=== PATIENT | male | born 1970 | race American Indian/Alaskan Native ===

== ENCOUNTER 2017-05-19 11:38 | Emergency (ER) | payer MEDICAID ==
[2017-05-19 12:02] VITALS: RESP 16; TEMP 97.7; BMI 25.1
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
[2017-05-19 12:53] LABS: URINE BILIRUBIN NEGATIVE (NEGATIVE); URINE BLOOD NEGATIVE (NEGATIVE); URINE GLUCOSE (UA) NEGATIVE (NEGATIVE); URINE LEUKOCYTE ESTERASE NEGATIVE Leu/uL (NEGATIVE); URINE NITRATE NEGATIVE (NEGATIVE); URINE PROTEIN NEGATIVE mg/dL (<30 mg/dL); URINE UROBILINOGEN 0.2 E.U./dL (<1 E.U./dL)
[2017-05-19 12:58] LABS: URINE COLOR YELLOW (YELLOW)
[2017-05-19 12:59] LABS: URINE APPEARANCE CLEAR (CLEAR)
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
[2017-05-19 14:37] VITALS: BP 132/80; PULSE 62; O2SAT 98
== END 2017-05-19 14:20 | disposition home or self-care (01) ==
LOC: ED 11:38
DX: R07.89 Other chest pain (principal); M79.1 Myalgia
CPT/HCPCS: 71250; 74176; 81003; 96372; 99285; J1885

== ENCOUNTER 2017-06-28 19:09 | Emergency (ER) | payer MEDICAID ==
[2017-06-28 19:10] VITALS: BMI 25.1
[2017-06-28 20:31] LABS: URINE APPEARANCE CLEAR (CLEAR); URINE BILIRUBIN NEGATIVE (NEGATIVE); URINE BLOOD NEGATIVE (NEGATIVE); URINE COLOR YELLOW (YELLOW); URINE GLUCOSE (UA) NEGATIVE (NEGATIVE); URINE KETONE NEGATIVE (NEGATIVE); URINE LEUKOCYTE ESTERASE NEGATIVE Leu/uL (NEGATIVE); URINE PROTEIN 30 mg/dL (<30 mg/dL); URINE UROBILINOGEN 0.2 E.U./dL (<1 E.U./dL)
[2017-06-28 20:34] LABS: BASO # 0.04 K/mm3 (0.0-2.0); BASO % 0.6 % (0.0-3.0); EOS # 0.1 (0.0-0.7); EOS % 1.3 % (1.5-5.0); GRAN # 3.9 (1.4-6.5); GRAN % 56.6 % (50.0-68.0); HEMATOCRIT 42.9 % (42.0-52.0); LYMPH # 2.4 (1.2-3.4); LYMPH % 35.5 % (22.0-35.0); MEAN CELL VOLUME 92.5 fl (80.0-105.0); MEAN CORPUSCULAR HEMOGLOBIN 31.5 pg (25.0-35.0); MEAN PLATELET VOLUME 10.3 fl (7.0-11.0); MONO # 0.4 (0.1-0.6); RED CELL DISTRIBUTION WIDTH 13.4 % (11.5-14.5); WHITE BLOOD COUNT 6.9 10^3/ul (4.5-11.0)
[2017-06-28 20:34] LABS: URINE RBC NEGATIVE /hpf (0-2); URINE WBC NEGATIVE /hpf (0-6)
[2017-06-28 20:46] LABS: ALB/GLOB RATIO 1.4 (1.1-1.8); ALKALINE PHOSPHATASE 80 U/L (38-126); ALT/SGPT 38 U/L (7-56); AST/SGOT 46 U/L (17-59); BILIRUBIN,TOTAL 0.7 mg/dL (0.2-1.3); BLOOD UREA NITROGEN 8 mg/dL (7-21); CALCIUM 9.1 mg/dL (8.4-10.5); CARBON DIOXIDE 25 mmol/L (21-33); CHLORIDE 107 mmol/L (98-107); GFR AFRICAN-AMERICAN > 60; GLUCOSE,RANDOM 91 mg/dL (70-110); POTASSIUM 3.7 mmol/L (3.6-5.0); SODIUM 142 mmol/L (132-148); TOTAL PROTEIN 7.5 g/dL (5.8-8.3)
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
[2017-06-29 00:08] VITALS: RESP 16
[2017-06-29 03:44] VITALS: BP 131/77; PULSE 69; TEMP 98.1; O2SAT 94
--- NOTE | 2017-06-29 07:46 | RAD ---
HISTORY: PES COMPARISON: Chest radiographs 12/14/2016. FINDINGS: LUNGS: No active pulmonary disease. PLEURA: No significant pleural effusion identified, no pneumothorax apparent. CARDIOVASCULAR: Normal. OSSEOUS STRUCTURES: No significant abnormalities. VISUALIZED UPPER ABDOMEN: Normal. OTHER FINDINGS: None. IMPRESSION: No acute cardiopulmonary is appreciated. No significant interval change 12/14/2016.
--- NOTE | 2017-06-29 11:11 | CARD ---
APPROVED REPORT EKG Measurement Heart [id number] <Conclusion> Normal sinus rhythm Minimal voltage criteria for LVH, may be normal variant
== END 2017-06-29 05:05 | disposition home or self-care (01) ==
LOC: ED 19:09
DX: R45.851 Suicidal ideations (principal); I10 Essential (primary) hypertension; F17.210 Nicotine dependence, cigarettes, uncomplicated; F19.10 Other psychoactive substance abuse, uncomplicated

== ENCOUNTER 2017-09-27 15:33 | Inpatient (IN) | payer MEDICAID, OTHER ==
[2017-09-27] MEDS ORDERED: Naloxone 0.4 mg/ml Inj (Adult) ONE (15:38)
[2017-09-27] MEDS ORDERED: Etomidate 20 mg/10ml Inj IV ONE (15:42)
[2017-09-27] MEDS ORDERED: Succinylcholine 200 mg/10 ml Inj IV ONE (15:42)
[2017-09-27] MEDS ORDERED: Sodium Chloride 0.9% 1,000 ML IV STA (15:55)
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
[2017-09-27] MEDS ORDERED: Etomidate 20 mg/10ml Inj IVP STA (16:00)
[2017-09-27] MEDS ORDERED: Succinylcholine 200 mg/10 ml Inj IV STA (16:00)
[2017-09-27] MEDS ORDERED: Naloxone 0.4 mg/ml Inj (Adult) IVP STA (16:00)
[2017-09-27 16:01] LABS: ALB/GLOB RATIO 1.5 (1.1-1.8); ALKALINE PHOSPHATASE 68 U/L (38-126); ALT/SGPT 32 U/L (7-56); AST/SGOT 37 U/L (17-59); BILIRUBIN,TOTAL 0.3 mg/dL (0.2-1.3); BLOOD UREA NITROGEN 18 mg/dL (7-21); CALCIUM 9.5 mg/dL (8.4-10.5); CARBON DIOXIDE 26 mmol/L (21-33); CHLORIDE 106 mmol/L (98-107); GFR AFRICAN-AMERICAN > 60; GLUCOSE,RANDOM 97 mg/dL (70-110); POTASSIUM 4.2 mmol/L (3.6-5.0); SODIUM 146 mmol/L (132-148); TOTAL PROTEIN 7.4 g/dL (5.8-8.3)
[2017-09-27 16:09] LABS: BASO # 0.02 K/mm3 (0.0-2.0); BASO % 0.2 % (0.0-3.0); EOS # 0.1 (0.0-0.7); EOS % 1.5 % (1.5-5.0); GRAN # 5.26 (1.4-6.5); GRAN % 59.7 % (50.0-68.0); HEMATOCRIT 46.4 % (42.0-52.0); LYMPH # 2.7 (1.2-3.4); LYMPH % 30.8 % (22.0-35.0); MEAN CELL VOLUME 96.9 fl (80.0-105.0); MEAN CORPUSCULAR HEMOGLOBIN 32.2 pg (25.0-35.0); MEAN CORPUSCULAR HGB CONC 33.2 g/dl (31.0-37.0); MEAN PLATELET VOLUME 10.4 fl (7.0-11.0); MONO # 0.7 (0.1-0.6); MONO % 7.8 % (1.0-6.0); RED CELL DISTRIBUTION WIDTH 13.3 % (11.5-14.5); WHITE BLOOD COUNT 8.8 10^3/ul (4.5-11.0)
[2017-09-27 16:12] LABS: TROPONIN I < 0.01 ng/mL
--- NOTE | 2017-09-27 16:34 | RAD ---
HISTORY: overdose COMPARISON: 06/28/2017 FINDINGS: LUNGS: No active pulmonary disease. PLEURA: No significant pleural effusion identified, no pneumothorax apparent. CARDIOVASCULAR: Probable mild cardiomegaly-similar OSSEOUS STRUCTURES: No significant abnormalities. VISUALIZED UPPER ABDOMEN: Normal. OTHER FINDINGS: Interval insertion endotracheal tube -tip 5 cm cephalad to nelson IMPRESSION: Interval insertion endotracheal tube. No acute cardiopulmonary pathology appreciated
[2017-09-27] MEDS: Propofol 10 mg/ml 1,000 MG/100 ML VIAL IV PRN ×3 (16:37→21:57)
[2017-09-27 16:41] LABS: URINE BILIRUBIN NEGATIVE (NEGATIVE); URINE BLOOD SMALL (NEGATIVE); URINE GLUCOSE (UA) NEGATIVE (NEGATIVE); URINE KETONE NEGATIVE (NEGATIVE); URINE LEUKOCYTE ESTERASE NEGATIVE Leu/uL (NEGATIVE); URINE PROTEIN NEGATIVE mg/dL (<30 mg/dL); URINE UROBILINOGEN 0.2 E.U./dL (<1 E.U./dL)
[2017-09-27 16:43] LABS: URINE APPEARANCE CLEAR (CLEAR); URINE COLOR YELLOW (YELLOW)
[2017-09-27 17:01] LABS: URINE BACTERIA FEW (NEG); URINE RBC 0 - 2 /hpf (0-2)
[2017-09-27 17:09] LABS: ARTERIAL BLOOD GAS HCO3 22.2 mmol/L (21-28); ARTERIAL BLOOD GAS PH 7.31 (7.35-7.45)
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
[2017-09-27 18:42] LABS: BLOOD UREA NITROGEN 16 mg/dL (7-21); CALCIUM 9.1 mg/dL (8.4-10.5); CARBON DIOXIDE 28 mmol/L (21-33); CHLORIDE 111 mmol/L (98-107); GFR AFRICAN-AMERICAN > 60; GLUCOSE,RANDOM 83 mg/dL (70-110); POTASSIUM 4.3 mmol/L (3.6-5.0); SODIUM 148 mmol/L (132-148)
--- NOTE | 2017-09-27 18:55 | CT ---
PROCEDURE: CT HEAD WITHOUT CONTRAST. HISTORY: unresponsive COMPARISON: Noncontrast head CT performed 03/13/16 TECHNIQUE: Axial computed tomography images were obtained through the head/brain without intravenous contrast. Radiation dose: Total exam DLP = 726.57 mGy-cm. This CT exam was performed using one or more of the following dose reduction techniques: Automated exposure control, adjustment of the mA and/or kV according to patient size, and/or use of iterative reconstruction technique. FINDINGS: HEMORRHAGE: No intracranial hemorrhage. BRAIN: No mass effect or edema. The turner-white matter differentiation appears intact.Please note that MRI with diffusion imaging is more sensitive in the detection of acute ischemic event. VENTRICLES: No hydrocephalus. CALVARIUM: Unremarkable. PARANASAL SINUSES: Unremarkable as visualized. No significant inflammatory changes. MASTOID AIR CELLS: Unremarkable as visualized. No inflammatory changes. OTHER FINDINGS: Partial opacification of the right external auditory canal, likely cerumen. IMPRESSION: No acute intracranial pathology identified. Partial opacification of the right external auditory canal, likely cerumen.
[2017-09-27] MEDS: Sodium Chloride 0.9% 1,000 ML IV SCH (19:32)
[2017-09-27 23:33] VITALS: BMI 23.0
--- NOTE | 2017-09-28 01:13 | CON ---
DATE: 09/27/2017 HISTORY OF PRESENT ILLNESS: This 46-year-old gentleman, who was brought into the emergency department by EMS, unresponsive. The patient remained unresponsive despite given Narcan. He was intubated in the emergency room for airway protection. No more HPI or PMH available as the patient is not responsive to touch stimuli and only responsive to painful stimuli. REVIEW OF SYSTEMS: Also not available. The patient is intubated at the time of presentation and examination by ICU Service. PAST MEDICAL HISTORY: Hypertension, asthma, COPD, seizure disorder. SOCIAL HISTORY: The patient is heavy smoker and smokes more than 10 cigarettes a day. Denies alcohol abuse. The patient abuse PCP. ALLERGIES: NKDA. HOME MEDICATIONS: None. REVIEW OF SYSTEMS: Not available. FAMILY HISTORY: Noncontributory. PHYSICAL EXAMINATION: The patient is intubated on PRVC 450/16/5/60%. On that setting, blood pressure 122/117, oxygen saturation 100%, heart rate 61, sinus. HEENT: Head and neck atraumatic. LUNGS: Clear to auscultation bilaterally. HEART: Regular rate and rhythm, S1 and S2 normal. ABDOMEN: Soft, nontender, nondistended. MUSCULOSKELETAL: No C/C/E. NEURO: The patient is nonresponsive to touch stimuli. SKIN: Moist. PSYCH: The patient is nonresponsive to touch stimuli. LABS: WBC 8.8, hemoglobin 15.4, platelet count 260. Sodium 146, potassium 4.2, chloride 106, carbon dioxide 26, BUN 18, creatinine 1.1, glucose 97, AST 37, ALT 32, total CPK 335. Troponin less than 0.01. Salicylates less than one. Tylenol less than 10. Alcohol 249. Urine is negative for leukocyte esterase, rbc's, wbc's, ketones, nitrites, proteins. ASSESSMENT AND PLAN: This is a 46-year-old gentleman, who presented with unresponsiveness and intubated for airway protection. He was found to have alcohol level of 249 which is enough to cause severe degree of clouding of consciousness. Chest x-ray did not reveal any acute pulmonary disease. U tox screen is pending. CAT scan of the head is pending. Neuro: The patient is probably heavily sedated with alcohol. We will continue with mechanical ventilation until his mental status improved and then proceed with weaning trial and potential extubation attempt. Pulmonary: We will continue with protective lung ventilation strategy. Head of bed elevated more than 35 degrees. Oral hygiene, deep venous thrombosis, gastrointestinal prophylaxis. Conservative fluid and oxygen management. Cardiovascular: The patient is hemodynamically relatively stable with exception of mild hypertension. Most likely, this is related to his some drug intoxication, but U tox is pending. GI: Abdominal exam is benign. We will continue with gastrointestinal prophylaxis. Renal: We will put Mueller in. We will monitor urine output. We will maintain mean arterial pressure above 65 and avoid hypotension and hypertension. We will avoid nephrotoxic medication. ID: The patient is afebrile, does not have leukocytosis. Endocrine: We will maintain blood glucose within 140 to 180 range. We will continue to target euvolemia, euglycemia, normothermia, and oxygen saturation more than 9o*%. We will continue with deep venous thrombosis and gastrointestinal prophylaxis. ccm time 40 min Rigoberto Martinez MD [facility]
[2017-09-28] MEDS: Propofol 10 mg/ml 1,000 MG/100 ML VIAL IV PRN ×2 (02:18→05:48)
[2017-09-28 05:36] LABS: BASO # 0.02 K/mm3 (0.0-2.0); BASO % 0.2 % (0.0-3.0); EOS # 0.1 (0.0-0.7); EOS % 0.7 % (1.5-5.0); GRAN # 9.65 (1.4-6.5); GRAN % 75.6 % (50.0-68.0); HEMATOCRIT 46.6 % (42.0-52.0); LYMPH # 2.3 (1.2-3.4); LYMPH % 18.3 % (22.0-35.0); MEAN CELL VOLUME 96.7 fl (80.0-105.0); MEAN CORPUSCULAR HEMOGLOBIN 31.7 pg (25.0-35.0); MEAN CORPUSCULAR HGB CONC 32.8 g/dl (31.0-37.0); MEAN PLATELET VOLUME 9.8 fl (7.0-11.0); MONO # 0.7 (0.1-0.6); MONO % 5.2 % (1.0-6.0); RED CELL DISTRIBUTION WIDTH 13.6 % (11.5-14.5); WHITE BLOOD COUNT 12.8 10^3/ul (4.5-11.0)
[2017-09-28] MEDS: Sodium Chloride 0.9% 1,000 ML IV SCH (05:48)
[2017-09-28 05:53] LABS: ARTERIAL BLOOD GAS HCO3 20.6 mmol/L (21-28); ARTERIAL BLOOD GAS PH 7.31 (7.35-7.45)
[2017-09-28 05:59] LABS: BLOOD UREA NITROGEN 13 mg/dL (7-21); CALCIUM 8.9 mg/dL (8.4-10.5); CARBON DIOXIDE 25 mmol/L (21-33); CHLORIDE 111 mmol/L (98-107); GFR AFRICAN-AMERICAN > 60; GLUCOSE,RANDOM 75 mg/dL (70-110); POTASSIUM 4.1 mmol/L (3.6-5.0); SODIUM 145 mmol/L (132-148)
[2017-09-28] MEDS ORDERED: Dexmedetomidine HCl 4mcg/ml 400 MCG/100 ML BOTTLE IV PRN (08:15)
[2017-09-28] MEDS ORDERED: Potassium Chloride 20 mEq/15 ml LIQ UD PO STA (11:23)
--- NOTE | 2017-09-28 12:00 | CP.PCM.PN ---
<Moncho Ruiz - Last Filed: 09/29/17 16:00> Subjective - Date & Time of Evaluation Date of Evaluation: 09/28/17 Time of Evaluation: 07:57 - Subjective Subjective: Patient seen and examined at bedside. Per nursing no acute events occurred overnight. The patient today was extubated early in the morning. The patient reports some right sided flank pain. The patient denies any chest pain, shortness of breath, chills, lightheadedness, dizziness, changes in vision, or any other complaints. Objective - Vital Signs/Intake and Output Vital Signs (last 24 hours): Temp Pulse Resp BP Pulse Ox 97.5 F L 75 12 182/86 H 98 09/28/17 06:00 09/28/17 10:46 09/28/17 08:09 09/28/17 10:46 09/28/17 08:23 Intake and Output: 09/28/17 09/28/17 06:59 18:59 Intake Total 1700 10 Output Total 3400 Balance -1700 10 - Medications Medications: Current Medications Amlodipine Besylate (Norvasc) 5 mg PO DAILY [facility] Last Admin: 09/28/17 10:46 Dose: 5 mg Heparin Sodium (Porcine) (Heparin) 5,000 units SC Q8H [facility] Last Admin: 09/28/17 03:00 Dose: 5,000 units Propofol (Diprivan) 1,000 mg in 100 mls @ 4.926 mls/hr IV .[id number] PRN; Protocol; 10 MCG/KG/MIN PRN Reason: TITRATE PER MD ORDER Last Titration: 09/28/17 08:17 Dose: 0 mcg/kg/min, 0 mls/hr Sodium Chloride (Sodium Chloride 0.9%) 1,000 mls @ 100 mls/hr IV .Q10H [facility] Last Admin: 09/28/17 05:48 Dose: 100 mls/hr Acetaminophen (Ofirmev) 1,000 mg in 100 mls @ 400 mls/hr IVPB Q6H PRN PRN Reason: Pain, moderate (4-7) Stop: 09/30/17 09:02 Last Admin: 09/28/17 09:14 Dose: 400 mls/hr Potassium Chloride (Potassium Chloride 20 Meq/100 Ml) 20 meq in 100 mls @ 50 mls/hr IVPB Q2H [facility] Stop: 09/28/17 13:44 Last Admin: 09/28/17 10:00 Dose: 50 mls/hr Ondansetron HCl (Zofran Inj) 2 mg IVP Q6 PRN PRN Reason: Nausea/Vomiting Pantoprazole Sodium (Protonix Inj) 40 mg IVP DAILY [facility] Last Admin: 09/28/17 09:41 Dose: 40 mg - Labs Labs: 09/28/17 05:15 09/28/17 05:15 - Head Exam Head Exam: ATRAUMATIC, NORMAL INSPECTION, NORMOCEPHALIC - Eye Exam Eye Exam: EOMI, Normal appearance, PERRL. absent: Periorbital tenderness Pupil Exam: NORMAL ACCOMODATION, PERRL. absent: Irregular, Unequal - ENT Exam ENT Exam: Mucous Membranes Moist, Normal Exam, Normal Oropharynx. absent: TM's Normal Bilaterally - Neck Exam Neck Exam: absent: Lymphadenopathy, Thyromegaly - Respiratory Exam Respiratory Exam: Clear to Ausculation Bilateral, NORMAL BREATHING PATTERN. absent: Chest Wall Tenderness, Prolonged Expiratory Phase, Respiratory Distress - Cardiovascular Exam Cardiovascular Exam: REGULAR RHYTHM, +S1, +S2 - GI/Abdominal Exam GI & Abdominal Exam: Soft, Normal Bowel Sounds. absent: Rigid, Hyperactive Bowel Sounds - Extremities Exam Extremities Exam: Full ROM. absent: Joint Swelling, Pedal Edema, Tenderness - Back Exam Back Exam: NORMAL INSPECTION. absent: CVA tenderness (R), paraspinal tenderness - Neurological Exam Neurological Exam: Alert, Awake, Normal Gait, Oriented x3 - Psychiatric Exam Psychiatric exam: Normal Affect, Normal Mood - Skin Skin Exam: Dry, Petechiae Assessment and Plan - Assessment and Plan (Free Text) Assessment: 46 year old male with a past medical history of depression, polysubstance abuse , seizures admitted for probably overdose. Plan: 1. Poly-substance overdose: Alcohol and Opiates -Urine drug screen was positive for opiates -Alcohol level was 249. -Given Narcan in transit to the hospital -Patient has a history of depression per Mother. Spoke with the mother regarding son's condition on the phone. Mother states he takes care of her since she has Stage 4 Pancreatic cancer and that contributes to his depression. Mother states that she is home ridden and will have the older son come and visit. I told the mother I would continue to update her on the status of her son. -Spoke with at bedside this morning. She confirmed the story and said the last time she saw him he was on his way to [place]. -Extubated. 2.History of Depression -Per mother patient has history of depression. States that son being treated at [facility] The patient was up until a week ago was on medication when he ran out. Since then per the mother, the son has been severely depressed. The mother states she saw her son this morning and he was fine. -Psych will be consulted. Follow up with recommendations 3. History of seizures -Per mother patient has history of seizures. Once extubated will try and obtain home medications. Will continue to monitor. 4. History of hypertension -Patient non-compliant per . -Last time taking medicine was over a year ago per the . -Will call Pharmacy and confirm home medications. Patient is normotensive at the time of the exam. Will continue to monitor. 5. Right sided flank pain -Abdomen, pelvis, chest ct ordered. Will follow up with results. GI/DVT ppx -Protonix and SCD's <Benedict Keith - Last Filed: 09/29/17 16:44> Objective - Vital Signs/Intake and Output Vital Signs (last 24 hours): Temp Pulse Resp BP Pulse Ox 98.6 F 66 20 140/86 97 09/29/17 07:30 09/29/17 14:20 09/29/17 07:30 09/29/17 14:20 09/29/17 07:30 Intake and Output: 09/29/17 09/29/17 06:59 18:59 Intake Total 960 540 Output Total 300 Balance 660 540 - Medications Medications: Current Medications Amlodipine Besylate (Norvasc) 5 mg PO DAILY [facility] Last Admin: 09/29/17 09:52 Dose: 5 mg Heparin Sodium (Porcine) (Heparin) 5,000 units SC Q8H [facility] Last Admin: 09/29/17 10:30 Dose: 5,000 units Ketorolac Tromethamine (Toradol) 15 mg IM Q6 PRN PRN Reason: Pain, moderate (4-7) Stop: 10/04/17 11:16 Levofloxacin (Levaquin) 500 mg PO DAILY [facility] Lisinopril (Zestril) 10 mg PO DAILY [facility] Last Admin: 09/29/17 14:20 Dose: 10 mg Ondansetron HCl (Zofran Inj) 2 mg IVP Q6 PRN PRN Reason: Nausea/Vomiting Last Admin: 09/29/17 14:15 Dose: 2 mg Pantoprazole Sodium (Protonix Ec Tab) 40 mg PO DAILY [facility] Phenytoin Sodium (Dilantin) 100 mg PO TID [facility] Last Admin: 09/29/17 13:57 Dose: 100 mg - Labs Labs: 09/29/17 06:30 09/29/17 06:30 Attending/Attestation - Attestation I have personally seen and examined this patient.: Yes I have fully participated in the care of the patient.: Yes I have reviewed all pertinent clinical information, including history, physical exam and plan: Yes Notes (Text): 09/29/17 16:41 Attending note; Patient seen and examined with resident in ICU. Patient is a 46-year-old male admitted after found unconscious on the street. status post extubation. Complaining of right-sided rib pain. Patient looks anxious. Patient's girlfriend by the bedside. History of alcohol abuse; complete alcohol cessation is strongly advised. Small hematoma on the right parietal area. CT head is negative for any acute bleed. CT chest abdomen and pelvis ordered. Transfer out of ICU.
--- NOTE | 2017-09-28 15:26 | CT ---
PROCEDURE: CT Chest, Abdomen and Pelvis without intravenous contrast HISTORY: r/o rib fracture, abdominal injury/ fall COMPARISON: 05/19/2017 TECHNIQUE: Radiation dose: Total exam DLP = 569 mGy-cm. This CT exam was performed using one or more of the following dose reduction techniques: Automated exposure control, adjustment of the mA and/or kV according to patient size, and/or use of iterative reconstruction technique. FINDINGS: CT CHEST WITHOUT CONTRAST: LUNGS: Minimal linear scarring or atelectasis at both lung bases. MEDIASTINUM: Unremarkable. Normal caliber aorta and pulmonary arterial trunk. Normal size heart. LYMPH NODES: Unremarkable. PLEURA: Unremarkable. No pneumothorax. No pleural fluid. BONES: Unremarkable. OTHER FINDINGS: None. CT ABDOMEN AND PELVIS: LIVER: Unremarkable. No gross lesion or ductal dilatation. GALLBLADDER AND BILE DUCTS: Unremarkable. PANCREAS: Unremarkable. No gross lesion or ductal dilatation. SPLEEN: Unremarkable. ADRENALS: Unremarkable. No mass. KIDNEYS AND URETERS: Left-sided renal cysts VASCULATURE: Unremarkable. No aortic aneurysm. BOWEL: Unremarkable. No obstruction. No gross mural thickening. APPENDIX: Normal appendix. PERITONEUM: Unremarkable. No free fluid. No free air. LYMPH NODES: Unremarkable. No enlarged lymph nodes. BLADDER: Unremarkable. REPRODUCTIVE: Unremarkable. BONES: No acute fracture. OTHER FINDINGS: None. IMPRESSION: No acute findings
[2017-09-28 16:26] VITALS: RESP 20
--- NOTE | 2017-09-28 19:10 | CARD ---
APPROVED REPORT EKG Measurement Heart [id number] <Conclusion> Normal sinus rhythm Moderate voltage criteria for LVH, may be normal variant Borderline ECG
[2017-09-29 07:07] LABS: BASO # 0.02 K/mm3 (0.0-2.0); BASO % 0.3 % (0.0-3.0); EOS # 0.2 (0.0-0.7); EOS % 1.9 % (1.5-5.0); GRAN # 4.92 (1.4-6.5); GRAN % 63.8 % (50.0-68.0); HEMATOCRIT 42.8 % (42.0-52.0); LYMPH # 1.9 (1.2-3.4); LYMPH % 24.1 % (22.0-35.0); MEAN CELL VOLUME 95.5 fl (80.0-105.0); MEAN CORPUSCULAR HEMOGLOBIN 31.5 pg (25.0-35.0); MEAN CORPUSCULAR HGB CONC 32.9 g/dl (31.0-37.0); MEAN PLATELET VOLUME 10.7 fl (7.0-11.0); MONO # 0.8 (0.1-0.6); MONO % 9.9 % (1.0-6.0); RED CELL DISTRIBUTION WIDTH 13.5 % (11.5-14.5); WHITE BLOOD COUNT 7.7 10^3/ul (4.5-11.0)
[2017-09-29 07:28] LABS: BLOOD UREA NITROGEN 13 mg/dL (7-21); CARBON DIOXIDE 26 mmol/L (21-33); CHLORIDE 106 mmol/L (98-107); GFR AFRICAN-AMERICAN > 60; GLUCOSE,RANDOM 97 mg/dL (70-110); POTASSIUM 3.9 mmol/L (3.6-5.0); SODIUM 138 mmol/L (132-148)
[2017-09-29 07:58] VITALS: TEMP 98.6; O2SAT 97
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
[2017-09-29] MEDS ORDERED: levoFLOXacin 500 mg in D5W 500 MG/100 ML BAG IVPB SCH (10:00)
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
[2017-09-29 14:24] VITALS: BP 140/86; PULSE 66
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
--- NOTE | 2017-09-29 17:00 | CP.PCM.DIS ---
Provider - Provider Date of Admission: 09/27/17 16:51 Attending physician: Benedict Keith MD Consults: Psychiatry: Dr. Flowers Neurology: Dr. Aranda Time Spent in preparation of Discharge (in minutes): 45 Hospital Course - Lab Results Lab Results: Micro Results 09/27/17 22:53 Naris MRSA Culture (Admit) - Final MRSA NOT DETECTED Most Recent Lab Values WBC 7.7 10^3/ul (4.5-11.0) D 09/29/17 06:30 RBC 4.48 10^6/uL (3.5-6.1) 09/29/17 06:30 Hgb 14.1 g/dL (14.0-18.0) 09/29/17 06:30 Hct 42.8 % (42.0-52.0) 09/29/17 06:30 MCV 95.5 fl (80.0-105.0) 09/29/17 06:30 MCH 31.5 pg (25.0-35.0) 09/29/17 06:30 MCHC 32.9 g/dl (31.0-37.0) 09/29/17 06:30 RDW 13.5 % (11.5-14.5) 09/29/17 06:30 Plt Count 237 10^3/uL (120.0-450.0) 09/29/17 06:30 MPV 10.7 fl (7.0-11.0) 09/29/17 06:30 Gran % 63.8 % (50.0-68.0) 09/29/17 06:30 Lymph % (Auto) 24.1 % (22.0-35.0) 09/29/17 06:30 Kidder % (Auto) 9.9 % (1.0-6.0) H 09/29/17 06:30 Eos % (Auto) 1.9 % (1.5-5.0) 09/29/17 06:30 Baso % (Auto) 0.3 % (0.0-3.0) 09/29/17 06:30 Gran # 4.92 (1.4-6.5) 09/29/17 06:30 Lymph # 1.9 (1.2-3.4) 09/29/17 06:30 Kidder # 0.8 (0.1-0.6) H 09/29/17 06:30 Eos # 0.2 (0.0-0.7) 09/29/17 06:30 Baso # 0.02 K/mm3 (0.0-2.0) 09/29/17 06:30 pCO2 41 mm/Hg (35-45) 09/28/17 05:30 pO2 118.0 mm/Hg (80-100) H 09/28/17 05:30 HCO3 20.6 mmol/L (21-28) L 09/28/17 05:30 ABG pH 7.31 (7.35-7.45) L 09/28/17 05:30 ABG Total CO2 21.9 mmol.L (22-28) L 09/28/17 05:30 ABG O2 Saturation 99.4 % (95-98) H 09/28/17 05:30 ABG Base Excess -5.4 mmol/L (-2.0-3.0) L 09/28/17 05:30 ABG Potassium 2.9 mmol/L (3.6-5.2) L 09/28/17 05:30 Sodium 146.0 mmol/L (132-148) 09/28/17 05:30 Chloride 120.0 mmol/L (98-107) H 09/28/17 05:30 Glucose 54 mg/dl (75-110) L 09/28/17 05:30 Lactate 1.0 mmol/L (0.7-2.1) 09/28/17 05:30 FiO2 60.0 % 09/28/17 05:30 Sodium 138 mmol/L (132-148) 09/29/17 06:30 Potassium 3.9 mmol/L (3.6-5.0) 09/29/17 06:30 Chloride 106 mmol/L (98-107) 09/29/17 06:30 Carbon Dioxide 26 mmol/L (21-33) 09/29/17 06:30 Anion Gap 10 (10-20) 09/29/17 06:30 BUN 13 mg/dL (7-21) 09/29/17 06:30 Creatinine 0.8 mg/dl (0.8-1.5) 09/29/17 06:30 Est GFR ( Amer) > 60 09/29/17 06:30 Est GFR (Non-Af Amer) > 60 09/29/17 06:30 Random Glucose 97 mg/dL (70-110) 09/29/17 06:30 Calcium 9.0 mg/dL (8.4-10.5) 09/29/17 06:30 Total Bilirubin 0.3 mg/dL (0.2-1.3) 09/27/17 15:35 AST 37 U/L (17-59) 09/27/17 15:35 ALT 32 U/L (7-56) 09/27/17 15:35 Alkaline Phosphatase 68 U/L (38-126) 09/27/17 15:35 Lactate Dehydrogenase 572 U/L (333-699) 09/27/17 15:35 Total Creatine Kinase 335 U/L (35-230) H 09/27/17 15:35 CK-MB (CK-2) 3.4 ng/mL (0.0-3.6) 09/27/17 15:35 CK-MB (CK-2) % Cancelled 09/27/17 15:35 Troponin I < 0.01 ng/mL 09/27/17 15:35 Total Protein 7.4 g/dL (5.8-8.3) 09/27/17 15:35 Albumin 4.4 g/dL (3.0-4.8) 09/27/17 15:35 Globulin 3.0 gm/dL 09/27/17 15:35 Albumin/Globulin Ratio 1.5 (1.1-1.8) 09/27/17 15:35 Arterial Blood Potassium 2.9 mmol/L (3.6-5.2) L 09/28/17 05:30 Urine Color Yellow (YELLOW) 09/27/17 16:39 Urine Appearance Clear (CLEAR) 09/27/17 16:39 Urine pH 6.0 (4.7-8.0) 09/27/17 16:39 Ur Specific [place] <= 1.005 (1.005-1.035) 09/27/17 16:39 Urine Protein Negative mg/dL (<30 mg/dL) 09/27/17 16:39 Urine Glucose (UA) Negative mg/dL (NEGATIVE) 09/27/17 16:39 Urine Ketones Negative mg/dL (NEGATIVE) 09/27/17 16:39 Urine Blood Small (NEGATIVE) H 09/27/17 16:39 Urine Nitrate Negative (NEGATIVE) 09/27/17 16:39 Urine Bilirubin Negative (NEGATIVE) 09/27/17 16:39 Urine Urobilinogen 0.2 E.U./dL (<1 E.U./dL) 09/27/17 16:39 Ur Leukocyte Esterase Negative [place]/uL (NEGATIVE) 09/27/17 16:39 Urine RBC 0 - 2 /hpf (0-2) 09/27/17 16:39 Urine WBC 1 - 3 /hpf (0-6) 09/27/17 16:39 Ur Epithelial Cells 1 - 3 /hpf (0-5) 09/27/17 16:39 Urine Bacteria Few (NEG) 09/27/17 16:39 Salicylates < 1 mg/dL (2.0-20.0) L 09/27/17 15:35 Urine Opiates Screen Positive (NEGATIVE) H 09/27/17 16:39 Urine Methadone Screen Negative (NEGATIVE) 09/27/17 16:39 Acetaminophen < 10.0 ug/ml (10.0-20.0) L 09/27/17 15:35 Ur Barbiturates Screen Negative (NEGATIVE) 09/27/17 16:39 Ur Phencyclidine Scrn Negative (NEGATIVE) 09/27/17 16:39 Ur Amphetamines Screen Negative (NEGATIVE) 09/27/17 16:39 U Benzodiazepines Scrn Negative (NEGATIVE) 09/27/17 16:39 U Oth Cocaine Metabols Negative (NEGATIVE) 09/27/17 16:39 U Cannabinoids Screen Negative (NEGATIVE) 09/27/17 16:39 Alcohol, Quantitative 249 mg/dL (0-10) H 09/27/17 15:35 - Hospital Course Hospital Course: 46 year old male with past medical history of seizures, hypertension, depression , poly-substance abuse, presented with an overdose of opioids and alcohol. He was given narcan on the way to the hospital. Patient may have had a questionable history of a seizure, as his stated that alcohol generally triggers his seizures, but the history is unclear. While here, it was revealed that the patient also has a history of depression, and that he has not been taking his hypertension nor his depression medications for a while. He states that he last took his dilantin a couple of weeks ago, but his states that he has not been taking any of his medications. Patient was initially intubated because he could not guard his airway, but he was extubated on day two of his admission. On day of discharge, an EEG was performed and was found to be normal. Patient was able to support his airway, was tolerating a diet, and was able to perform IADLs. He was deemed stable for discharge. Discharge Exam - Head Exam Head Exam: ATRAUMATIC, NORMAL INSPECTION, NORMOCEPHALIC - Eye Exam Eye Exam: EOMI, Normal appearance, PERRL Pupil Exam: NORMAL ACCOMODATION, PERRL - ENT Exam ENT Exam: Normal External Ear Exam, Normal Oropharynx, TM's Normal Bilaterally - Neck Exam Neck exam: Full Rom, Normal Inspection - Respiratory Exam Respiratory Exam: Clear to PA & Lateral, NORMAL BREATHING PATTERN, UNREMARKABLE - Cardiovascular Exam Cardiovascular Exam: REGULAR RHYTHM, +S1, +S2. absent: Systolic Murmur - GI/Abdominal Exam GI & Abdominal Exam: Normal Bowel Sounds - Rectal Exam Rectal Exam: NORMAL INSPECTION - Extremities Exam Extremities exam: full ROM, normal inspection - Back Exam Back exam: FULL ROM, NORMAL INSPECTION. absent: CVA tenderness (L), CVA tenderness (R) - Neurological Exam Neurological exam: Alert, CN II-XII Intact, Normal Gait, Oriented x3, Reflexes Normal - Psychiatric Exam Psychiatric exam: Normal Affect, Normal Mood - Skin Skin Exam: Dry, Intact, Normal Color, Warm Discharge Plan - Follow Up Plan Condition: CRITICAL Disposition: HOME/ ROUTINE Instructions: Pneumococcal Vaccine for Adults (GEN), Influenza (GEN), Abuse of Alcohol (GEN), Alcohol Withdrawal (DC) Additional Instructions: 1.Follow-up with [facility] next week. Call [phone] to confirm appointment. 2. Stop alcohol abuse. 3. Follow-up with AA meetings. 4. Stop smoking. Stop opiate abuse.
--- NOTE | 2017-09-29 18:17 | ENDO ---
PROCEDURE DATE: CONDITION OF THE RECORDING: Drowsy EEG. DIAGNOSIS: Seizure. MEDICATIONS: Reviewed by nurse's reconciliation sheet. INTERPRETATION: This is a 16-channel [employer] recording. The background activity of this tracing was composed of 6-7 cycles per second. There was a small amount of beta activity of 16-20 cycles per second seen in this recording. There was increased amount of theta activity 5-7 cycles per seconds seen in this tracing. Drowsiness was characterized by mixed beta and theta activities. Sleep was characterized by vertex transient waves, sleep spindles, and bilateral slowing. Photic stimulation showed no changes in the tracing. No paroxysmal activity is noted in this recording. CONCLUSION: This is an abnormal EEG due to presence of mild diffuse slowing throughout the recordings consistent with mild bilateral cerebral dysfunction. No evidence of any epileptiform activity. Please clinically correlate. Jose J Aranda MD
[2017-09-30] MEDS ORDERED: Pantoprazole 40 mg EC Tab PO SCH (10:00)
[2017-09-30] MEDS ORDERED: levoFLOXacin 500 MG TAB PO SCH (10:00)
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
== END 2017-09-29 18:27 | disposition home or self-care (01) | DRG 918 ==
LOC: ED 15:33 → ERH 16:51 → ICU 21:20 → 5RNO 09-28 14:40
PROVIDERS: ADMIT Internal Medicine; ATTEND Internal Medicine
PROC: 5A1935Z Respiratory Ventilation, Less than 24 Consecutive Hours (ICD-10-PCS; principal; 2017-09-27)
PROC: 0BH17EZ Insertion of Endotracheal Airway into Trachea, Via Natural or Artificial Opening (ICD-10-PCS; 2017-09-27)
DX: T40.2X1A Poisoning by other opioids, accidental (unintentional), initial encounter (principal); T51.0X1A Toxic effect of ethanol, accidental (unintentional), initial encounter; G40.909 Epilepsy, unspecified, not intractable, without status epilepticus; F10.129 Alcohol abuse with intoxication, unspecified; Y90.8 Blood alcohol level of 240 mg/100 ml or more; J44.9 Chronic obstructive pulmonary disease, unspecified; F17.210 Nicotine dependence, cigarettes, uncomplicated; F32.9 Major depressive disorder, single episode, unspecified; S00.03XA Contusion of scalp, initial encounter; F16.10 Hallucinogen abuse, uncomplicated; I10 Essential (primary) hypertension; Z91.19 Patient's noncompliance with other medical treatment and regimen

== ENCOUNTER 2018-03-15 23:55 | Emergency (ER) | payer MEDICAID ==
[2018-03-16 00:11] VITALS: BMI 25.6
[2018-03-16] MEDS ORDERED: Multivitamin (MVI) 10 ML, Thiamine 100 MG, Folic Acid 1 MG in Sodium Chloride 0.9% 1,00... IV ONE (00:13)
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
[2018-03-16 00:38] LABS: BASO # 0.03 K/mm3 (0.0-2.0); BASO % 0.3 % (0.0-3.0); EOS # 0.1 (0.0-0.7); EOS % 1.3 % (1.5-5.0); GRAN # 4.85 (1.4-6.5); GRAN % 53.9 % (50.0-68.0); HEMOGLOBIN 14.7 g/dL (14.0-18.0); LYMPH # 3.3 (1.2-3.4); LYMPH % 36.7 % (22.0-35.0); MEAN CORPUSCULAR HGB CONC 34.6 g/dl (31.0-37.0); MEAN PLATELET VOLUME 9.9 fl (7.0-11.0); MONO # 0.7 (0.1-0.6); MONO % 7.8 % (1.0-6.0); RBC 4.6 10^6/uL (3.5-6.1); RED CELL DISTRIBUTION WIDTH 13.2 % (11.5-14.5)
[2018-03-16 00:44] LABS: MEAN CELL VOLUME 92.4 fl (80.0-105.0); PROTHROMBIN TIME 11.4 SECONDS (9.4-12.5)
[2018-03-16 00:45] LABS: VENOUS BLOOD GAS BASE EXCESS -0.1 mmol/L (0.0-2.0); VENOUS BLOOD GAS PO2 54 mm/Hg (30-55); VENOUS BLOOD PH 7.32 (7.32-7.43)
[2018-03-16 00:56] LABS: ALB/GLOB RATIO 1.3 (1.1-1.8); ALBUMIN 4.4 g/dL (3.0-4.8); ALT/SGPT 30 U/L (7-56); AST/SGOT 49 U/L (17-59); BLOOD UREA NITROGEN 12 mg/dL (7-21); GFR AFRICAN-AMERICAN > 60; GFR NON-AFRICAN AMERICAN > 60
[2018-03-16 01:06] LABS: TROPONIN I < 0.01 ng/mL
--- NOTE | 2018-03-16 01:27 | CT ---
EXAM: CT Head Without Intravenous Contrast CLINICAL HISTORY: 47 years old, male; Signs and symptoms; Coma or unconsciousness; Additional info: Seizure TECHNIQUE: Axial computed tomography images of the head/brain without intravenous contrast. All CT scans at this facility use one or more dose reduction techniques, viz.: automated exposure control; ma/kV adjustment per patient size (including targeted exams where dose is matched to indication; i.e. head); or iterative reconstruction technique. 354 images are submitted. Axial images are submitted in brain and bone windows. Coronal and sagittal reformatted images were created and reviewed. Axial reformatted images were created and reviewed. COMPARISON: CT - HEAD W/O CONTRAST 2017-09-27 18:36 FINDINGS: Brain: Unremarkable. No hemorrhage. No significant white matter disease. No edema. Ventricles: Unremarkable. No ventriculomegaly. Bones/joints: Anterior mandible plate and screw fixation seen on the embedded software development engineer film. Frontal sinus osteoma. No acute fracture. Soft tissues: There is right and posterior convexity scalp hematoma. Sinuses: Minimal right maxillary sinus disease. Mastoid air cells: Unremarkable. No mastoid effusion. Auditory system: Cerumen the right external auditory meatus. Orbits: The globe and lens are intact. IMPRESSION: 1. There is right and posterior convexity scalp hematoma. 2. No evidence of an acute intracranial hemorrhage, midline shift or mass effect is identified.
[2018-03-16 02:20] LABS: CK-MB 6.4 ng/mL (0.0-3.6)
[2018-03-16 03:26] LABS: URINE BILIRUBIN NEGATIVE (NEGATIVE); URINE BLOOD NEGATIVE (NEGATIVE); URINE GLUCOSE (UA) NEGATIVE (NEGATIVE); URINE LEUKOCYTE ESTERASE NEGATIVE Leu/uL (NEGATIVE); URINE PROTEIN NEGATIVE mg/dL (<30 mg/dL); URINE UROBILINOGEN 0.2 E.U./dL (<1 E.U./dL)
[2018-03-16 03:29] LABS: URINE APPEARANCE CLEAR (CLEAR); URINE COLOR YELLOW (YELLOW)
[2018-03-16 04:15] LABS: BARBITURATES, UR NEGATIVE (NEGATIVE)
[2018-03-16 04:20] LABS: BENZODIAZEPINES, UR NEGATIVE (NEGATIVE); OPIATES, UR NEGATIVE (NEGATIVE); PHENCYCLIDINE, UR NEGATIVE (NEGATIVE)
--- NOTE | 2018-03-16 08:32 | RAD ---
HISTORY: SEIZURE COMPARISON: 09/27/2017 palpable will FINDINGS: LUNGS: No active pulmonary disease. PLEURA: No significant pleural effusion identified, no pneumothorax apparent. CARDIOVASCULAR: No radiographic findings to suggest acute or significant cardiovascular disease. OSSEOUS STRUCTURES: No significant abnormalities. VISUALIZED UPPER ABDOMEN: Normal. OTHER FINDINGS: None. IMPRESSION: No active disease. No significant interval change compared to the prior examination(s).
[2018-03-16 09:32] VITALS: BP 123/76; PULSE 73; RESP 18; TEMP 98; O2SAT 98
--- NOTE | 2018-03-16 19:02 | CARD ---
APPROVED REPORT EKG Measurement Heart [id number] <Conclusion> Normal sinus rhythm Possible Left atrial enlargement RSR' or QR pattern in V1 suggests right ventricular conduction delay Left ventricular hypertrophy Cannot rule out Septal infarct, age undetermined Abnormal ECG
== END 2018-03-16 09:30 | disposition home or self-care (01) ==
LOC: ED 23:55
DX: R56.9 Unspecified convulsions (principal); F10.129 Alcohol abuse with intoxication, unspecified; Y90.8 Blood alcohol level of 240 mg/100 ml or more; I10 Essential (primary) hypertension; F19.10 Other psychoactive substance abuse, uncomplicated; F17.210 Nicotine dependence, cigarettes, uncomplicated
CPT/HCPCS: 70450; 71045; 80053; 80320; 80324; 80345; 80346; 80349; 80353; 80358; 80361; 81003; 82550; 82553; 82803; 83615; 83992; 84484; 85025; 85610; 93005; 96365; 96375; 99285; J2060; J3411; J7030

== ENCOUNTER 2018-03-22 21:53 | Emergency (ER) | payer MEDICAID ==
[2018-03-22 21:53] VITALS: BMI 25.6
[2018-03-22] MEDS ORDERED: Naloxone 0.4 mg/ml Inj (Adult) IVP STA ×2 (22:40→23:06)
[2018-03-22] MEDS ORDERED: Naloxone 0.4 mg/ml Inj (Adult) ONE (22:41)
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
[2018-03-22 22:54] LABS: HEMOGLOBIN 14.9 g/dL (14.0-18.0); MEAN CELL VOLUME 92.7 fl (80.0-105.0); MEAN CORPUSCULAR HGB CONC 34.6 g/dl (31.0-37.0); MEAN PLATELET VOLUME 10.2 fl (7.0-11.0); RBC 4.65 10^6/uL (3.5-6.1); RED CELL DISTRIBUTION WIDTH 13.3 % (11.5-14.5); WHITE BLOOD COUNT 9.2 10^3/ul (4.5-11.0)
[2018-03-22 23:02] LABS: ALB/GLOB RATIO 1.3 (1.1-1.8); ALBUMIN 4.4 g/dL (3.0-4.8); ALT/SGPT 39 U/L (7-56); AST/SGOT 50 U/L (17-59); BLOOD UREA NITROGEN 10 mg/dL (7-21); GFR AFRICAN-AMERICAN > 60; GFR NON-AFRICAN AMERICAN > 60
[2018-03-23 03:18] LABS: BARBITURATES, UR NEGATIVE (NEGATIVE); BENZODIAZEPINES, UR NEGATIVE (NEGATIVE); OPIATES, UR NEGATIVE (NEGATIVE); PHENCYCLIDINE, UR NEGATIVE (NEGATIVE)
[2018-03-23] MEDS ORDERED: Potassium Chloride 20 mEq ER Tab PO STA (06:14)
[2018-03-23 06:38] VITALS: BP 134/79; PULSE 69; RESP 17; TEMP 98.2; O2SAT 100
== END 2018-03-23 06:38 | disposition home or self-care (01) ==
LOC: ED 21:53
DX: F10.129 Alcohol abuse with intoxication, unspecified (principal); F17.210 Nicotine dependence, cigarettes, uncomplicated; I10 Essential (primary) hypertension
CPT/HCPCS: 80053; 80320; 80324; 80345; 80346; 80349; 80353; 80358; 80361; 83992; 85027; 96374; 99284; J2310

== ENCOUNTER 2018-04-28 22:56 | Emergency (ER) | payer MEDICAID ==
[2018-04-28 23:10] VITALS: BMI 26.6
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
--- NOTE | 2018-04-29 06:58 | ED PDOC ---
Physical Exam Vital Signs Reviewed: Yes Vital Signs Temp Pulse Resp BP Pulse Ox 04/29/18 10:00 98.1 F 71 17 112/69 98 04/29/18 08:22 66 16 110/68 98 04/29/18 07:20 72 14 107/71 99 04/29/18 06:48 68 14 120/79 99 04/29/18 03:36 69 14 115/83 98 Temperature: Afebrile Blood Pressure: Normal Pulse: Regular Respiratory Rate: Normal Appearance: Positive for: Well-Appearing, Non-Toxic, Comfortable Pain Distress: None Mental Status: Positive for: Alert and Oriented X 3 Finger Stick Blood Glucose: 69 Medical Decision Making ED Course and Treatment: 04/29/18 07:00 Patient endorsed to me by Dr. Foster. Patient brought to the ER for public intoxication. Pending sobriety and final disposition. 04/29/18 07:50 Patient reevaluated by me at 07:03. Patient is easily arousable. He is currently sleeping, alert, and has no slurred speech/tongue laceration/chest pain/shortness of breath/any signs of acute trauma. Admits to "drinking a lot last night." Patient has no present tremors/shaking, and no incontinence noted. The plan is to continue to keep patient under observation until sobriety. 04/29/18 11:23 Patient's is present at bedside. Patient is awake, alert, and oriented, not slurring speech. Denies any acute pain/discomfort. Advised of risk of excessive EtOH use. Patient and his confirmed patient consumed alcohol last night, however deny of any substance abuse or any injuries. Patient has been advised to follow-up with PMD for any new or worsening symptoms. Patient denies any acute pain or discomfort. I have stressed need for close follow-up with his PMD for re-evaluation if he has any symptoms develop, or return to the ED. - Lab Interpretations Lab Results: Lab Results 04/28/18 23:10: POC Glucose (mg/dL) 69 - Medication Orders Current Medication Orders: Discontinued Medications Ondansetron HCl (Zofran Odt) 4 mg PO STAT STA Stop: 04/29/18 10:35 Last Admin: 04/29/18 11:00 Dose: 4 mg - Scribe Statement The provider has reviewed the documentation as recorded by the Scribe Leyda Amezqutia Provider Scribe Attestation: All medical record entries made by the Scribe were at my direction and personally dictated by me. I have reviewed the chart and agree that the record accurately reflects my personal performance of the history, physical exam, medical decision making, and the department course for this patient. I have also personally directed, reviewed, and agree with the discharge instructions and disposition. Disposition/Present on Arrival - Present on Arrival Any Indicators Present on Arrival: No History of DVT/PE: No History of Uncontrolled Diabetes: No Urinary Catheter: No History of Decub. Ulcer: No History Surgical Site Infection Following: None - Disposition Have Diagnosis and Disposition been Completed?: Yes Diagnosis: Alcohol intoxication Disposition: HOME/ ROUTINE Disposition Time: 12:00 Patient Plan: Discharge Condition: GOOD Discharge Instructions (ExitCare): Alcohol Abuse and Alcoholism (DC) Additional Instructions: For any chest pain, any fevers, any shortness of breath, any abdominal pain, any vomiting blood, any dark or bloody stool, any lightheadedness or dizziness, ANY NEW OR PERSISTENT SYMPTOMS, get rechecked. Risks of excessive alcohol use have been discussed with your. Follow-up with your physician in 1-2 days. For any tremors, shaking, headaches, bleeding return immediately to the ER. Referrals: [facility] [Outside] - Follow up with primary Светлана Moyer MD [Primary Care Provider] - Follow up with primary Apple Whitehead MD [Staff Provider] - Follow up with primary Forms: [employer] (Japanese)
[2018-04-29 11:02] VITALS: RESP 17; TEMP 98.1
[2018-04-29 11:26] VITALS: BP 109/70; PULSE 75; O2SAT 99
== END 2018-04-29 11:29 | disposition home or self-care (01) ==
LOC: ED 22:56
DX: F10.129 Alcohol abuse with intoxication, unspecified (principal)

== ENCOUNTER 2018-05-28 13:09 | Emergency (ER) | payer OTHER, MEDICAID ==
[2018-05-28 13:19] VITALS: RESP 18; TEMP 98.7
[2018-05-28 13:20] VITALS: BMI 23.6
[2018-05-28] MEDS ORDERED: Oxycodone/Acetaminophen 5/325 mg Tab PO STA (13:23)
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
[2018-05-28 15:17] VITALS: BP 143/84; PULSE 74; O2SAT 100
== END 2018-05-28 15:20 | disposition home or self-care (01) ==
LOC: ED 13:09
DX: M25.561 Pain in right knee (principal); V19.40XA Pedal cycle driver injured in collision with unspecified motor vehicles in traffic accident, initial encounter; Y93.55 Activity, bike riding; Y92.410 Unspecified street and highway as the place of occurrence of the external cause

== ENCOUNTER 2019-03-16 00:12 | Emergency (ER) | payer MEDICAID, OTHER ==
[2019-03-16 00:12] VITALS: BMI 23.6
[2019-03-16 00:24] VITALS: TEMP 97.8
[2019-03-16 00:55] LABS: BASO # 0.02 K/mm3 (0.0-2.0); BASO % 0.2 % (0.0-3.0); EOS # 0.1 (0.0-0.7); EOS % 0.5 % (1.5-5.0); HEMOGLOBIN 11.5 g/dL (14.0-18.0); LYMPH % 32.6 % (22.0-35.0); MEAN CELL VOLUME 92.6 fl (80.0-105.0); MEAN CORPUSCULAR HEMOGLOBIN 30.6 pg (25.0-35.0); MEAN PLATELET VOLUME 10.1 fl (7.0-11.0); MONO # 0.4 (0.1-0.6); MONO % 4.8 % (1.0-6.0); RBC 3.76 10^6/uL (3.5-6.1); RED CELL DISTRIBUTION WIDTH 13.3 % (11.5-14.5); WHITE BLOOD COUNT 9.1 10^3/uL (4.5-11.0)
[2019-03-16 00:56] LABS: ALB/GLOB RATIO 1.4 (1.1-1.8); ALBUMIN 3.7 g/dL (3.0-4.8); ALT/SGPT 26 U/L (7-56); AST/SGOT 35 U/L (17-59); BLOOD UREA NITROGEN 10 mg/dL (7-21); CALCIUM 8.4 mg/dL (8.4-10.5); GFR NON-AFRICAN AMERICAN > 60
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
[2019-03-16 03:18] VITALS: BP 122/65; PULSE 74; RESP 17; O2SAT 99
--- NOTE | 2019-03-16 11:45 | CT ---
Date of service: 03/16/2019 PROCEDURE: CT HEAD WITHOUT CONTRAST. HISTORY: r/o ICH COMPARISON: CT head dated 03/16/2018. TECHNIQUE: Axial computed tomography images were obtained through the head/brain without intravenous contrast. Radiation dose: Total exam DLP = 928.26 mGy-cm. This CT exam was performed using one or more of the following dose reduction techniques: Automated exposure control, adjustment of the mA and/or kV according to patient size, and/or use of iterative reconstruction technique. FINDINGS: HEMORRHAGE: No intracranial hemorrhage. BRAIN: No mass effect or edema. No atrophy or chronic microvascular ischemic changes. VENTRICLES: Unremarkable. No hydrocephalus. CALVARIUM: High right parietal scalp swelling. No calvarial fracture. PARANASAL SINUSES: Unremarkable as visualized. No significant inflammatory changes. MASTOID AIR CELLS: Unremarkable as visualized. No inflammatory changes. OTHER FINDINGS: None. IMPRESSION: Right parietal scalp swelling. No calvarial fracture. No acute intracranial pathology.
== END 2019-03-16 03:14 | disposition home or self-care (01) ==
LOC: ED 00:12
DX: Z72.89 Other problems related to lifestyle (principal); F17.210 Nicotine dependence, cigarettes, uncomplicated; I10 Essential (primary) hypertension; F32.9 Major depressive disorder, single episode, unspecified; R56.9 Unspecified convulsions
CPT/HCPCS: 70450; 80053; 85025; 99283; G0480